=== PATIENT | female | born 1985 | race Caucasian/White ===

== ENCOUNTER → 2017-05-12 | Outpatient (CLI) | payer BC ==
[~2017-05-12] MED LIST: IBUP600T44 PO; PRCUNK PO; PRENTAB26 PO; augmentin
== END | disposition home or self-care (01) ==
LOC: C.PAPS 16:17
PROVIDERS: ATTEND Obstetrics & Gynecology
DX: Z01.419 Encounter for gynecological examination (general) (routine) without abnormal findings (principal)

== ENCOUNTER → 2017-06-06 | Outpatient (CLI) | payer BC ==
[2017-06-06 12:10] LABS: BASO % 0.3 %; BASO ABS # 0.02 K/uL (0-0.2); EOS ABS # 0.06 K/uL (0-0.5); HEMATOCRIT 37.6 % (37-47); HEMOGLOBIN 12.7 g/dL (12.0-16.0); IG# 0.02 K/uL (0.00-0.02); LYMPH % 17.8 %; LYMPH ABS # 1.04 K/uL (1.2-3.4); MEAN CELL VOLUME 89.7 fL (80-100); MEAN CORPUSCULAR HEMOGLOBIN 30.3 pg (25-34); MEAN CORPUSCULAR HGB CONC 33.8 g/dl (32-36); MEAN PLATELET VOLUME 10.2 fL (7.4-10.4); MONO % 6.8 %; NEUT % 73.8 %; NEUT ABS # 4.31 K/uL (1.4-6.5); PLATELET COUNT 268 K/uL (130-400); RED CELL DISTRIBUTION WIDTH CV 13.6 % (11.5-14.5); RED CELL DISTRIBUTION WIDTH SD 44.6 fL (36.4-46.3); WHITE BLOOD COUNT 5.85 K/uL (4.8-10.8)
== END | disposition home or self-care (01) ==
LOC: C.LAB 10:11
PROVIDERS: ATTEND Obstetrics & Gynecology
DX: Z30.2 Encounter for sterilization (principal)

== ENCOUNTER → 2017-06-08 | Day surgery (SDC) | payer BC ==
[2017-05-19 10:51] VITALS: Ht 175.3 cm; Wt 84.5 kg
--- NOTE | 2017-06-06 10:07 | HISTORY & PHYSICAL EXAMINATION ---
DATE OF ADMISSION: 06/08/2017 CHIEF COMPLAINT: Desire for permanent sterilization. HISTORY OF PRESENT ILLNESS: The patient is a 32-year-old 2, para 2 general health is good. She has had 2 previous C-sections for deliveries. She is on no chronic pills or medications. She has no known drug allergies. She is using condoms for control, last menstrual period was 05/19/2017. She has been informed of the nature of the procedure of tubal ligation including the fact that this procedure is intended to result in permanent and irreversible sterility and that these procedures can fail and you can get despite having had your tubes tied. She has also been made aware of alternative temporary forms of control such as IUD, control pills, etc. PAST MEDICAL HISTORY: She has 2 girls in good health. ALLERGIES: No known drug allergies. PAST SURGICAL HISTORY: Had wisdom teeth removed, had 2 C-sections. MEDICAL HISTORY: No history of rheumatic fever, heart disease, heart murmur, diabetes, tuberculosis. SOCIAL HISTORY: No smoking. No excessive alcohol intake. Works at the [employer]. REVIEW OF SYSTEMS: HEAD: No symptoms of frequent or severe headaches. EYES: No symptoms of blurred vision, double vision. EARS: No symptoms of frequent ear infections, difficulty hearing. NOSE: No symptoms of frequent nosebleeds, difficulty breathing through her nose. THROAT: No symptoms of frequent or severe sore throat, difficulty swallowing. RESPIRATORY SYSTEM: No history of asthma, chest pain, shortness of breath. PHYSICAL EXAMINATION: GENERAL: Well-developed, well-nourished 32-year-old white female, alert, oriented x3 and cooperative in no acute distress, appears stated age. EYES: Conjunctivae are pink. Sclerae white. No evidence of jaundice. EARS: Had normal light reflex bilaterally. NOSE: Had normal mucosa. Septum is midline. There were no polyps. THROAT: No erythema or evidence of infection. Teeth are in good state of repair. HEAD: Was normocephalic, normal distribution of hair. NECK: Supple. Trachea midline. Thyroid is not enlarged. There is no adenopathy appreciated. Both carotids are of good intensity. CHEST: Clear to auscultation and percussion. No wheezes, rales or rhonchi appreciated. HEART: Had regular rhythm. S1 and S2 were normal. BREAST EXAMINATION: Normal. ABDOMEN: Soft and nontender. There is a well-healed Pfannenstiel scar. PELVIC EXAMINATION: Revealed normal-appearing cervix. Uterus was top normal size. There were no adnexal masses appreciated. MUSCULOSKELETAL: Revealed no calf tenderness. IMPRESSIONS OF THIS CASE: Status post wisdom teeth removal, status post x2 and desire for permanent sterilization.
[~2017-06-08] VITALS: Ht 175.3 cm; Wt 84.5 kg
[~2017-06-08] MED LIST changes: +ATROPINE SULFATE 0.1 MG/ML 5ML SYR IV PRN; +BUPIVACAINE/EPINEPHRINE 0.5% MPF 1:200,000 30 ML VIAL ONE; +DEXAMETHASONE SOD INJ 4 MG/ML VIAL ONE; +EpHEDrine SULFATE INJ 50 MG/ML AMP IV PRN; +FENTANYL CITRATE INJ 50 MCG/1 ML 2 ML VIAL IV PRN; +FENTANYL CITRATE INJ 50 MCG/1 ML 2 ML VIAL ONE; +HYDROCODONE/ACETAMOPHEN 5/325MG TAB PO PRN; +HYDROmorphone INJ 1 MG/ML SYR IV PRN; -IBUP600T44 PO; +IBUPROFEN 200 MG TAB ONE; +IBUPROFEN 600 MG TAB PO PRN; +KETOROLAC TROMETHAMINE 30 MG/ML VIAL IV. PRN; +KETOROLAC TROMETHAMINE 30 MG/ML VIAL ONE; +LACTATED RINGER'S 1000ML 1,000 ML IV SCH; +LIDOCAINE HCL 2% 2 ML VIAL (20MG/ML) ONE; +MIDAZOLAM HCL 1 MG/ML 2ML VIAL ONE; +ONDANSETRON INJ 2 MG/ML 2 ML VIAL IV PRN; +ONDANSETRON INJ 2 MG/ML 2 ML VIAL ONE; +OXYCODONE/ACETAMINOPHEN 5-325 TAB PO PRN; -PRCUNK PO; -PRENTAB26 PO; +PROMETHAZINE HCL INJ 12.5 MG in SODIUM CHLORIDE 0.9% 50ML 50 ML IV PRN; +PROPOFOL IV EMULSION 10 MG/ML 20 ML VIAL IV ONE; +SCOPOLAMINE 1.5 MG TDSY TD ONE; +SODIUM CHLORIDE 0.9% 1000ML 1,000 ML IV SCH; +SODIUM CHLORIDE 0.9% INJ 10 ML VIAL ONE; -augmentin
--- NOTE | 2017-06-08 08:57 | History & Physical Bridge Note ---
H&P Re-Evaluation Bridge Note: I have examined the patient, reviewed the History & Physical and in the interval since the performance of the History & Physical I have noted the following changes of clinical significance: No changes noted
--- NOTE | 2017-06-08 10:12 | [facility] Post Operative Brief Note ---
Immediate Operative Summary Operative Date Jun 08, 2017. Pre-Operative Diagnosis Desire for sterilization Post-Operative Diagnosis Same as pre-op Procedure(s) Performed Laparoscopic Tubal Sterilization Surgeon Negative Restorer Surgeon(s) None Estimated Blood Loss 10ML Findings extensive endometriosis of the cul de sac adhesions of the left fallopian tube Specimens A.Peritoneal biopsy Complication(s) None Disposition Recovery Room / PACU
--- NOTE | 2017-06-08 10:15 | Discharge Instructions-SurgCtr ---
Discharge Instructions Date of Service Jun 08, 2017. Visit Reason for Visit: Desire For Sterilization Discharge Discharge Diagnosis / Problem: desire for permanent sterilization endometriosis Discharge Goals Goal(s): Improve function, Therapeutic intervention, Prevent Disease Progression Activity Recommendations Activity Limitations: as noted below SPECIAL CARE INSTRUCTIONS: * Check temperature twice daily for one week. Report any elevation over 100.4 degrees Fahrenheit (38.0 degrees Celsius). * Call office in the next few days for return appointment. * You may experience some vaginal spotting and/or bleeding, this is normal for one or two weeks and should not alarm you. * Post-operative discomfort may consist of a sore throat, a "bloated" feeling and pain in the shoulders. These are normal symptoms which usually only last for two or three days. FOLLOW UP VISIT: Keep any scheduled doctor appointments. Anesthesia . Post Anesthesia Instructions: If you have had General Anesthesia or IV Sedation: * Do not drive today. * Resume driving when surgeon permits. * Do not make important decisions or sign legal documents today. * Call surgeon for: 1. Temperature elevations greater than 101 degrees F. 2. Uncontrollable pain. 3. Excessive bleeding. 4. Persistent nausea and vomiting. 5. Medication intolerance (nausea, vomiting or rash). * For nausea and vomiting use only clear liquids such as: tea, soda, bouillon until nausea subsides, then gradually increase diet as tolerated. * If you have any concerns or questions, call your surgeon's office. If physician is unavailable and it is an emergency, call 911 or go to the nearest emergency room. . Instructions / Follow-Up Instructions / Follow-Up ACTIVITY RECOMMENDATIONS: * Rest the first 2-3 days. You should be back to your normal activity levels by day 3. * No heavy lifting for 2 weeks. * No intercourse, tampons or douching for 1-2 weeks. * You may shower the next day. * Do not drive anytime that you are taking narcotic pain medicines. RETURN TO SCHOOL/WORK: * May return to school or work after 2-3 days. DIET: Nausea may occur in the immediate post-operative period. If so, take clear liquids such as tea, bouillon, apple juice until all nausea has subsided, then resume usual diet. MEDICATIONS: Resume previous medications unless instructed otherwise by your surgeon. Ibuprofen 200mg 2-3 tablets every 4-6 hours as needed -- OR -- Aleve 2 tablets every 8-12 hours as needed for post-operative discomfort Medications are over the counter. Tylenol may be used if above medications are contraindicated or not preferred. Medication should be taken with food or milk. Do not take on an empty stomach. SPECIAL CARE INSTRUCTIONS: * Check temperature twice daily for one week. report any elevation over 101 degrees. * You may experience some vagina spotting and/or bleeding. This is normal for 1 -2 weeks and should not be heavier than a normal period. If it is unusual in amount, call your physician. * Post-operative discomfort may consist of a sore throat, a "bloated" feeling and pain in the shoulders. these are normal symptoms, which usually only last for 2-3 days. * Remove band-aids tomorrow and shower. There is no need to replace band-aids unless there is drainage or discomfort. FOLLOW UP VISIT: Call your doctor's office for a post-operative 2 week visit if not already scheduled. Diet Recommendations Home Diet: resume previous diet Procedures Procedures Performed: Laparoscopic Tubal Sterilization Pending Studies Studies pending at discharge: no Medical Emergencies . Who to Call and When: Medical Emergencies: If at any time you feel your situation is an emergency, please call 911 immediately. . Non-Emergent Contact Non-Emergency issues call your: Operations Staff Specialist Security Call Non-Emergent contact if: temperature is above 100.5 . . "Provider Documentation" section prepared by Feliz Hurtado. .
--- NOTE | 2017-06-08 10:18 | OPERATIVE REPORT ---
DATE OF OPERATION: 06/08/2017 PREOPERATIVE DIAGNOSIS: Desire for permanent sterilization. POSTOPERATIVE DIAGNOSIS: Left adnexal adhesions, extensive endometriosis cul-de-sac. PROCEDURE: Laparoscopic tubal cauterization and a biopsy of the right uterosacral ligament for endometriosis. SURGEON: Dr. Hurtado. ESTIMATED BLOOD LOSS: 10 mL. ANESTHESIA: General inhalational. OPERATIVE FINDINGS AND PROCEDURE: The patient was brought to the OR table, correctly identified by armband and conversation. General anesthesia was administered. Perineum, vagina and lower abdomen was painted with Betadine paint. She was positioned in candy cane stirrups on the OR table. Catheter was used to empty the bladder. A weighted speculum was placed in the posterior vagina. Anterior lip of the cervix grasped with single tooth tenaculum. An acorn cannula inserted in cervical canal and connected to the tenaculum. Subumbilical area was infiltrated with local with epinephrine. Subumbilical stab wound was made. A Veress needle was inserted into the abdominal cavity. Position was checked with normal saline. The incision was then extended laterally after 2-3 liters of carbon dioxide gas was passed under low pressure. Veress needle was removed and then a large cannula and trocar was inserted. Trocar was removed. Laparoscope was inserted. Good visualization of pelvic structures was obtained at this time. Inspection revealed extensive endometriosis of the cul-de-sac involving both uterosacral ligaments, a little bit more so on the right. Each fallopian tube was followed out to the fimbriated end to ensure identification. Fallopian tube on the left side was adherent and somewhat abnormal in position. It was freed up bluntly and we identified the area of the tube coming off the cornu of the uterus. This area was cauterized with bipolar cauterization forceps, this was the left side, then the right side was free. It was cauterized in the middle in 2 consecutive areas with the bipolar cauterization forceps then I used laparoscopic scissors to divide the cauterized areas and then photographed both. I then used a peritoneal biopsy instrument to biopsy a portion of the right uterosacral ligament next to the cervix that had endometrial implants on it. I obtained a good biopsy, submitted for pathology. Then I just cauterized the biopsy area with bipolar cauterization. Following this, hemostasis was excellent. Photographs were taken, gas was expressed manually. Instruments were removed. The ports were cleansed with Betadine and sutured with interrupted Vicryl. I attest to the content of the Intraoperative Record and any orders documented therein. Any exception s are noted below.
[2017-06-08 11:07] VITALS: BP 120/74; PULSE 69; TEMP 36.5; O2SAT 95
--- NOTE | 2017-06-08 11:25 | Anesthesiology Progress Note ---
Anesthesia Post Op Note Date & Time Jun 08, 2017 at 11:25 Vital Signs Pain Intensity: 2.0 Vital Signs Past 12 Hours Date Time Temp Pulse Resp B/P (MAP) Pulse Ox O2 Delivery O2 Flow Rate FiO2 06/08/17 11:07 36.5 69 18 120/74 (89) 95 Room Air 06/08/17 11:02 113/65 06/08/17 11:01 66 21 80/72 96 06/08/17 11:01 66 21 06/08/17 10:58 115/70 06/08/17 10:57 36.8 68 12 113/65 97 Room Air 06/08/17 10:56 73 18 63/46 98 06/08/17 10:56 73 18 06/08/17 10:51 64 17 110/59 100 06/08/17 10:51 65 17 06/08/17 10:46 62 9 06/08/17 10:46 61 9 119/60 100 06/08/17 10:41 62 13 06/08/17 10:41 62 13 119/63 100 06/08/17 10:36 66 13 108/62 100 06/08/17 10:36 64 13 06/08/17 10:31 65 11 99/64 100 06/08/17 10:31 65 11 06/08/17 10:26 60 19 06/08/17 10:26 59 19 109/60 100 06/08/17 10:21 59 9 111/62 100 06/08/17 10:21 59 9 06/08/17 10:16 63 6 06/08/17 10:16 63 6 100 06/08/17 10:15 112/62 06/08/17 10:11 71 13 100/53 100 06/08/17 10:11 37.2 72 12 100/53 100 Mask 6 06/08/17 10:11 70 13 06/08/17 08:06 36.7 91 16 129/67 (87) 97 Room Air Notes Mental Status: alert / awake / arousable, participated in evaluation Pt Amnestic to Procedure: Yes Nausea / Vomiting: adequately controlled Pain: adequately controlled Airway Patency, RR, SpO2: stable & adequate BP & HR: stable & adequate Hydration State: stable & adequate Anesthetic Complications: no major complications apparent
== END | disposition home or self-care (01) ==
LOC: X.SURG 07:45
PROVIDERS: ATTEND Obstetrics & Gynecology
DX: Z30.2 Encounter for sterilization (principal); N80.3 Endometriosis of pelvic peritoneum; N73.6 Female pelvic peritoneal adhesions (postinfective)